=== PATIENT | male | born 1960 | race Caucasian/White ===

== ENCOUNTER 2018-05-05 16:00 | Outpatient (RCR) | payer BC, SELFPAY ==
--- NOTE | 2018-04-18 15:55 | HP.PTEVAL_ITS ---
Patient's Visit Information ARMOND HERBERT is a 57 year old M referred to Physical Therapy by Rosio Snowden with a diagnosis of R shoulder OA. Date of Evaluation: 04/18/18 Physical Therapist: Demetrius Franco, PT, - Visit Plan Frequency: 2-3x /Week Duration: 4 Weeks Plan: scap stability, RTC strengthening, AROM with pulleys, UBE, HEP - Subjective Subjective: Pt comes to PT with R shoulder pain from overuse which onset over a year ago. MRI shows R shoulder OA and labral tears. Pt has had four cortisone shots with slight improvement in pain. Pt is woken up from sleep due to pain. Sleeping position consists of laying on elevated arm. Pt has difficulty reaching overhead and keeping arms elevated for prolonged periods of time. Pt is R hand dominant. Pt denies N&T. Pt denies experiencing pain at rest. Pain is made better by predisone and rest. At the worst, R shoulder pain is intermittent and 7/10. Pt goals include sleeping without pain waking him up and return to work related activities consisting of overhead activities. - Pain R shoulder Pain Intensity (Out of 10): 0 Pain Intensity Range: 7 - Objective Neuro: all sensation to light touch is intact bilat. Biceps reflexes are 2+ bilat. Posture: rounded shoulders bilat, increased thoracic kyphosis, forward head posture. Palpation: TTP over supraspinatus. ROM: L shoulder flexion 159, abd 154, ER 40; R shoulder flexion 124, abd 105, ER 36. MMT: L shoulder flexion 3+, abd 4+, ER 4+, elbow flexion 4+; R shoulder flexion 3+*, abd 4-*, ER 4, elbow flexion 5. Special Tests: cardenas sabiha (+), empty can (+) - Goals Goal 1:: Improve sleep by decreasing pain by 50%. Goal Time Frame: 2-4 Weeks Goal 2:: Improve R shoulder strength by 2 MMT grades for return to workplace activities. Goal Time Frame: 2-4 Weeks Goal 3:: Gain 20 deg of R shoulder flexion and abd to return to performing work activities and IADLs. Goal Time Frame: 2-4 Weeks Goal 4:: I with HEP. Goal Time Frame: 2-4 Weeks - Rehabilitation Potential Physical Therapy Diagnosis: R shoulder pain, weakness, limited ROM secondary to rotator cuff syndrome. Rehabilitation Potential: Good - Anticipated Interventions Patient/Client Instruction: Educate patient on: Condition, Plan of Care For the Purpose of:: To improve self management Therapeutic Exercise to Include: Strength training, Endurance training, Postural training, Flexibilty training, Active ROM, Scapular Strength/ Stabilization For the Purpose of:: To decrease pain, To increase ROM, To improve muscle performance and motor function Cryotherapy (ice pack, ice massage): Yes For the Purpose of:: To decrease pain Thank you for the opportunity to evaluate your patient. For Medicare and Medicare HMO plans, please review the plan of care and approve it. It will need to be FAXED BACK to us at [phone] for Medicare purposes. Please let me know if there are questions or concerns regarding this plan of care. Physician Signature: Date:
--- NOTE | 2018-05-05 16:00 | DT_ITS ---
This patient was seen during an EMR downtime May 02, 2018 - May 09, 2018. This patient may have a combination of paper and electronic documentation or all paper documentation. All documentation is viewable within the e-chart portion of [employer] [facility] [employer] for each patient visit.
--- NOTE | 2018-06-30 17:14 | HP.PTDCNRP_ITS ---
HP - Discharge Summary (1) - Patient Information ARMOND HERBERT was seen in my office for initial evaluation on 04/18/18. The following Plan of Care was established for this patient: Initial Frequency: 2-3x /Week Initial Duration: 4 Weeks - Anticipated Interventions Patient/Client Instruction: Educate patient on: Condition, Plan of Care For the Purpose of:: To improve self management Therapeutic Exercise to Include: Strength training, Endurance training, Postural training, Flexibilty training, Active ROM, Scapular Strength/ Stabilization For the Purpose of:: To decrease pain, To increase ROM, To improve muscle performance and motor function Cryotherapy (ice pack, ice massage): Yes For the Purpose of:: To decrease pain This patient was last seen in our office . Pertinent comments regarding their Physical therapy will appear below: Pt was last scheduled for PT on the date of 05/12/18 but did not show for that appt. Pt has not returned through todays date, and is therefore discontinued at this time. At this point I will be discontinuing this patient from physical therapy. I would be happy to see this patient again in the future if found appropriate by the physician. Thank you! Demetrius Franco, PT,
== END 2018-05-05 19:00 | disposition home or self-care (01) ==
LOC: PT 16:00
PROVIDERS: Family Provider Internal Medicine; PCP Internal Medicine; Visit Provider Internal Medicine
DX: M19.011 Primary osteoarthritis, right shoulder (principal); M75.21 Bicipital tendinitis, right shoulder
CPT/HCPCS: 97110; 97161

== ENCOUNTER → 2019-09-15 11:28 | Outpatient (CLI) | payer BC, SELFPAY ==
[2014-06-29 09:29] VITALS: BMI 27.6
--- NOTE | 2019-09-15 11:33 | RAD_ITS ---
STUDY: X-RAY - ACUTE ABDOMINAL SERIES REASON FOR EXAM: Male, 58 years old. Abdominal pain. TECHNIQUE: Single view of the chest. Supine, and erect view(s) of the abdomen were obtained. COMPARISON: Comparison is made with prior chest radiograph dated August 01, 2015. FINDINGS: Stable calcified granulomas. Hyperinflation. The lungs are clear. Normal size heart. Calcified right hilar lymph nodes. Normal visualized pulmonary arteries. Normal visualized aortic arch and descending thoracic aorta. There is a moderate amount of colonic fecal material. The soft tissue structures of the abdomen and pelvis are unremarkable. Normal visualized osseous structures. RAD/Acute Abdomen Inc Chest IMPRESSION: Moderate amount of fecal material is seen in the colon. Electronically Signed: Arnadlo Phelps, at 12:44 EDT , Service support ,
[2019-09-15 12:37] LABS: Absolute Lymphocyte Count 1.56 X10^3/uL (0.83-4.51); Absolute Neutrophil Count 9.1 X10^3/uL (2.0-7.7); Basophil# 0.06 X10^3/uL; Basophil% 0.5 % (0-1); Eosinophil# 0.12 X10^3/uL; Lymphocyte # 1.56 X10^3/ul (4.0); Lymphocyte % 13.4 % (19-41); Mean Corp Hgb Conc 33.3 g/dL (32-36); Mean Corpuscular Hgb 29.9 pg (27.0-32.0); Mean Corpuscular Volume 89.7 fL (80-94); Mean Platelet Vol. 10.1 fl (6.2-12.0); Monocyte# 0.79 X10^3/uL; Monocyte% 6.8 % (0-10); NRBC Flagged by Analyzer 0 % (0-5); Neutrophil # 9.07 X10^3/uL (2.7-7.7); Platelet Count 293 K/mm3 (150-450); RBC Distribution Width CV 12.5 % (11.6-14.6); RBC Distribution Width SD 41.2 fl (35.1-43.9); Red Blood Count 5.35 M/mm3 (4.6-6.2); White Blood Count 11.6 K/mm3 (4.4-11.0)
[2019-09-15 12:39] LABS: Erythrocyte Sedimentation Rate 3 mm/hr (0-20)
[2019-09-15 13:15] LABS: ALB/GLOB Ratio 1.3 RATIO (0.9-2.4); AST(SGOT) 24 U/L (15-37); Alanine Aminotransfer ALT/SGPT 30 U/L (16-61); Albumin, Serum 3.9 g/dL (3.2-5.0); Alkaline Phosphatase 132 U/L (45-117); Anion Gap 5 (5-15); BUN 10 mg/dL (7-18); BUN/Creat Ratio 9.5 RATIO (10-20); Chloride 108 mmol/L (98-107); Creatinine, Serum 1.05 mg/dL (0.70-1.30); EST Glomerular Filtration Rate 76 mL/min (>60); Est Glom Filt Rate - Afr Amer 92 mL/min (>60); Globulin 2.9 g/dL (2.2-4.2); Glucose 84 mg/dL (74-106); Potassium 4.9 mmol/L (3.5-5.1); Protein, Total 6.8 g/dL (6.4-8.2); Sodium Level 142 mmol/L (136-145)
== END ==
LOC: HPRAD 11:29
PROVIDERS: Family Provider Internal Medicine; PCP Internal Medicine; Referring Provider Internal Medicine; Visit Provider Internal Medicine
DX: R10.31 Right lower quadrant pain (principal)
CPT/HCPCS: 74022; 80053; 85025; 85652; 86140

== ENCOUNTER 2019-09-30 08:40 | Emergency (ER) | payer BC, SELFPAY ==
[2019-09-30 08:43] VITALS: BP 132/3; PULSE 71; RESP 16; TEMP 36.4; O2SAT 99; BMI 28.7
--- NOTE | 2019-09-30 08:55 | RAD_ITS ---
STUDY: X-RAY - LUMBAR SPINE REASON FOR EXAM: Male, 58 years old. Low back pain. TECHNIQUE: 5 view(s) of the lumbar spine were obtained. COMPARISON: March 26, 2014 FINDINGS: No acute fracture, dislocation or osseous destruction. Minimal chronic T12 vertebral body height loss. No significant scoliosis. Lumbar straightening. Mild multilevel endplate spondylosis. Minimal facet joint arthrosis. No significant soft tissue swelling. Normal bowel gas pattern. RAD/L/S Spine Min 4 Views IMPRESSION: Lumbar spine intact Mild lumbar spine osteoarthritis Minimal chronic T12 vertebral body height loss Electronically Signed: Ronald Graham DO at 9:27 EDT Tel , Service support ,
--- NOTE | 2019-09-30 08:56 | ED.VIS.GEN ---
History of Present Illness Chief Complaint: Back Informant: Patient Onset: Days - 3 Context: Gradual Onset Timing: Continuous Current Severity: Severe Maximum Severity: Severe Worsened by: movement Relieved by: rest Narrative: Patient is a 58-year-old male with history of hypertension hyperlipidemia presented with atraumatic low back pain. Patient states it started 3 days ago has been progressively worsening. He states that in his lower back and describes it as sharp. The pain does not radiate. He states it is especially worse whenever he tries to bend or move. He has a hard time putting on his shoes or socks because of the pain. 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 In addition his recently had knee surgery and is been taking care of her. Patient denies any fecal or urine incontinence. He denies any paresthesias excluding saddle anesthesia. Denies any fever or chills. He denies any weakness of his lower extremities but states he is having hard time walking because of the pain. Patient denies any history of cancer or IV drug use. He has not taken anything for the pain at home. He has been using a cane to help with his ambulation. Patient states he does have a history of traumatic hip dislocation but states this feels different. He went and saw a chiropractor yesterday but was concerned because the chiropractor did not do any imaging. The chiropractor tried to adjust him but was unable to. Past Medical History - Allergies and Home Meds Allergies/Adverse Reactions: Allergies No Known Allergies Allergy (Verified 09/30/19 08:43) Primary Care Physician: Rosio Snowden DO [Primary Care Provider] - Past Medical History: - - Hypertension, hyperlipidemia Surgical History: noncontributory Lives: Spouse/ Significant Other Smoking Status: Former smoker Review of Systems All systems negative except as indicated Musculoskeletal: Reports: Back pain Physical Exam Vital Signs/Narrative: Vital Signs Temp Pulse Resp BP Pulse Ox 09/30/19 08:43 97.6 F L 71 16 132/3 H 99 Inital Vital Signs reviewed: Yes General: Well nourished, Well developed, No Acute Distress, - - Patient sitting straight up in chair Head: Normocephalic, Atraumatic Eyes: Perrl, EOMI ENT: Moist mucous membranes, No rhinorrhea Neck: Supple, Nontender, - - No meningeal signs Cardiovascular: Regular rate, Regular rhythm, No murmurs Respiratory: No distress, CTA bilaterally, Chest nontender Abdomen: Soft, Nontender, Nondistended, Normal bowel sounds Back: Normal Inspection, - - No midline tenderness, bilateral lower lumbar paraspinal tenderness to palpation. Negative for: CVA tenderness, Spinal tenderness Extremities: Nontender, No edema, - - Normal strength, no deformity Skin: Normal color, No rash Neurological: Alert, Oriented x3, Cranial nerves II-XII grossly intact, Normal Strength, Normal Sensation, - - Antalgic gait Psychological: Normal affect, Normal Mood Diagnostic/Tx/Re-eval Diagnostic Data Lumbar Spine X-Ray 09/30/19 08:55 IMPRESSION: Lumbar spine intact Mild lumbar spine osteoarthritis Minimal chronic T12 vertebral body height loss Electronically Signed: Ronald Graham DO at 9:27 EDT Tel , Service support , - Medical Decision Making Patient is evaluated for atraumatic low back pain. He has a normal neurologic exam. He does not have findings consistent with cauda equina syndrome. He is well-appearing. He is able to walk but with pain. Patient is given Motrin in the emergency room. X-ray does not show any acute fracture or lytic lesions. Patient is counseled on symptom medic treatment including heat, NSAIDs and Flexeril. He is counseled on signs and symptoms requiring return to emergency room. He verbalizes agreement understand this plan. Discharged home in stable condition. ED Disposition - Plan for ED Patient: Disposition: Home or Assisted Living Diagnosis: Acute lumbar back pain Instructions: BACK PAIN (Acute or Chronic) Prescriptions: cycloBENZAPRine HCl [Flexeril] 10 mg PO TID PRN #20 tab PRN Reason: Muscle Spasm Prescription Printed Ibuprofen [Motrin] 600 mg PO Q6H PRN PRN #20 tab PRN Reason: Pain Or Fever Prescription Printed Referrals: Rosio Snowden DO [Primary Care Provider] - Additional Instructions: Use heat on your lower back. Follow-up with your primary care doctor later in the week. Try to rest.
[2019-09-30] MEDS: Ibuprofen 600 MG Tablet PO (09:18)
--- NOTE | 2019-09-30 09:46 | ED.RN ---
DISCHARGE INSTRUCTIONS GIVEN TO AND REVIEWED WITH PATIENT, PATIENT DENIES QUESTIONS OR CONCERNS AND VOICES UNDERSTANDING OF DISCHARGE INSTRUCTIONS. PT AMBULATES OUT OF ROOM WITHOUT ISSUE.
== END 2019-09-30 09:47 | disposition home or self-care (01) ==
PROVIDERS: Emergency Provider Emergency Medicine; Family Provider Internal Medicine; PCP Internal Medicine
DX: M54.5 Low back pain (principal); I10 Essential (primary) hypertension; E78.5 Hyperlipidemia, unspecified; Z87.891 Personal history of nicotine dependence
CPT/HCPCS: 72110; 99283

== ENCOUNTER 2019-10-10 22:28 | Emergency (ER) | payer BC, SELFPAY ==
[2019-10-10 22:29] VITALS: BP 158/99; PULSE 88; RESP 16; TEMP 36.7; O2SAT 98; BMI 29.5
--- NOTE | 2019-10-10 22:48 | ED.DCSUM_ITS ---
History of Present Illness Chief Complaint: Abd Pain Narrative: Patient is a 58-year-old male who presents with back and abdominal pain. Symptoms initially began about 2 weeks ago with lower back pain. He was having some mild lower abdominal discomfort at that time. He initially saw his chiropractor who stated his hips were out of alignment and I did some therapy which did not seem to help. She was then seen here in the emergency department and had lumbar x-rays and was diagnosed with some arthritis in lower back. He was prescribed muscle relaxers. Since that time he has had constipation which she attributes to the muscle relaxers. He also developed worsening sharp lower abdominal pain. He does have a history of diverticulitis. He saw his primary care physician and had an x-ray. He was diagnosed with constipation and also clinically diagnosed with diverticulitis. He drank magnesium citrate and was also prescribed 2 different antibiotics which she believes were Cipro and Flagyl. However he states he did not feel right on the antibiotics and that they were making him shaky at work. He quit taking the antibiotics about 2 days ago. He continued to have sharp lower abdominal pain which is worse with bending over. His back pain is much better although he does still have lower back pain when he wakes up in the morning for about 30 minutes. This is worse with positional changes or palpation. No fevers nausea or vomiting. His only prior abdominal surgery is a hernia repair. Past Medical History - Allergies and Home Meds Allergies/Adverse Reactions: Allergies No Known Allergies Allergy (Verified 10/10/19 22:31) Primary Care Physician: Rosio Snowden DO [Primary Care Provider] - Past Medical History: - - Hypertension, hyperlipidemia, history of diverticulitis Surgical History: noncontributory Smoking Status: Former smoker Review of Systems All systems negative except as indicated General: Denies: Fever Cardiovascular: Denies: Chest pain Respiratory: Denies: Dyspnea Gastrointestinal: Reports: Abdominal pain, Constipation. Denies: Nausea, Vomiting, Diarrhea Skin: Denies: Rash Neurological: Denies: Headache Physical Exam Vital Signs/Narrative: Vital Signs Temp Pulse Resp BP Pulse Ox 10/10/19 22:29 98.1 F 88 16 158/99 H 98 Inital Vital Signs reviewed: Yes General: Well nourished, Well developed Head: Normocephalic, Atraumatic Eyes: EOMI ENT: Moist mucous membranes Neck: Supple Cardiovascular: Regular rate, Regular rhythm Respiratory: No distress, CTA bilaterally Abdomen: Soft, - - Lower abdominal tenderness without guarding or rebound Extremities: Nontender Skin: Normal color Neurological: Alert Psychological: Normal affect Diagnostic/Tx/Re-eval Impressions Abdomen/Pelvis CT 10/11/19 00:30 IMPRESSION: Colon diverticulosis. Electronically Signed: Ann Marie Savage, at 0:48 EST Tel , Service support , 10/11/19 00:30 Abdomen/Pelvis WITH Contrast [CT] Stat Laboratory Results 10/10/19 10/10/19 10/10/19 22:36 22:36 22:58 WBC 9.4 RBC 4.82 Hgb 14.3 Hct 42.6 MCV 88.4 MCH 29.7 MCHC 33.6 RDW Std Deviation 41.1 RDW Coeff of Jin 12.7 Plt Count 271 MPV 10.2 Immature Gran % (Auto) 0.200 Neut % (Auto) 74.2 H Lymph % (Auto) 16.8 L [place] % (Auto) 8.5 Eos % (Auto) 0.1 Baso % (Auto) 0.2 Absolute Neuts (auto) 7.0 Absolute Lymphs (auto) 1.58 Nucleated RBC % 0 Sodium 141 Potassium 3.8 Chloride 108 H Carbon Dioxide 26.0 Anion Gap 7 BUN 19 H Creatinine 1.31 H Estim Creat Clear Calc 61.92 Est GFR (MDRD) Af Amer 72 Est GFR (MDRD) Non-Af 59 L BUN/Creatinine Ratio 14.5 Glucose 133 H Calcium 8.8 Urine Color Yellow Urine Clarity Clear Urine pH 5.0 Ur Specific [place] 1.025 Urine Protein 15 H Urine Glucose (UA) Normal Urine Ketones 5 H Urine Occult Blood 10 H Urine Nitrite Negative Urine Bilirubin Negative Urine Urobilinogen Normal Ur Leukocyte Esterase 25 H Urine RBC 0-5 SEEN Urine WBC 0-5 SEEN Ur Squamous Epith Cells 0 SEEN Urine Bacteria 0 SEEN Hyaline Casts 0-5 SEEN Urine Mucus 3+ - Medical Decision Making Laboratory studies, urinalysis, CT of the abdomen unremarkable as above. He does not have evidence of acute diverticulitis. His back pain is likely musculoskeletal in nature. He was advised on supportive care and advised to follow-up with his primary care physician. In regards to his lower abdominal pain this is of uncertain etiology however he does not appear to have any acute medical or surgical emergency. He was advised to pursue further outpatient work-up but does understand return for new or worsening symptoms. He was discharged. ED Disposition - Plan for ED Patient: Disposition: Home or Assisted Living Diagnosis: Back pain, Abdominal pain Instructions: ABDOMINAL PAIN, Unkown Cause, (Male), BACK PAIN (Acute or Chronic) Referrals: Rosio Snowden DO [Primary Care Provider] -
[2019-10-10] MEDS: 0.9% Normal Saline 1,000 ML 1000 ML IV (22:59)
[2019-10-10] MEDS: Ketorolac 30 MG/ML Syringe IV (22:59)
[2019-10-10 23:06] LABS: Bacteria 0 SEEN /hpf (None Seen); Squamous Epithelial Cells - UA 0 SEEN /hpf (0-5)
[2019-10-10 23:07] LABS: Color, Urine Yellow (Yellow); Glucose, Dipstick Normal (Normal); Ketone-Dipstick 5 mg/dl (Negative); Leukocyte Esterase-Dipstick 25 /ul (Negative); Nitrite-Dipstick Negative (Negative); Occult Blood-Urine 10 /ul (Negative); Protein-Dipstick 15 mg/dl (Negative); Specific Gravity, Urine 1.025 (1.002-1.030); Urine Bilirubin Dipstick Negative (Negative); Urine Clarity Clear (Clear); Urine Urobilinogen Normal (Normal)
[2019-10-10 23:09] LABS: Absolute Lymphocyte Count 1.58 X10^3/uL (0.83-4.51); Basophil# 0.02 X10^3/uL; Basophil% 0.2 % (0-1); Eosinophil# 0.01 X10^3/uL; Eosinophils% 0.1 % (0-5); Hematocrit 42.6 % (40-54); Hemoglobin 14.3 g/dL (13.0-16.5); Lymphocyte # 1.58 X10^3/ul (4.0); Lymphocyte % 16.8 % (19-41); Mean Corp Hgb Conc 33.6 g/dL (32-36); Mean Corpuscular Hgb 29.7 pg (27.0-32.0); Mean Corpuscular Volume 88.4 fL (80-94); Mean Platelet Vol. 10.2 fl (6.2-12.0); Monocyte% 8.5 % (0-10); NRBC Flagged by Analyzer 0 % (0-5); Neutrophil # 6.98 X10^3/uL (2.7-7.7); Neutrophil % 74.2 % (47-70); Platelet Count 271 K/mm3 (150-450); RBC Distribution Width CV 12.7 % (11.6-14.6); RBC Distribution Width SD 41.1 fl (35.1-43.9); Red Blood Count 4.82 M/mm3 (4.6-6.2); White Blood Count 9.4 K/mm3 (4.4-11.0)
[2019-10-10 23:13] LABS: Mucous, Urine 3+ /hpf (<or=2+)
[2019-10-10 23:14] LABS: Hyaline Cast 0-5 SEEN /lpf (0-5)
[2019-10-10 23:15] LABS: White Blood Cells 0-5 SEEN /hpf (0-5)
[2019-10-10 23:16] LABS: Red Blood Cells-Urine 0-5 SEEN /hpf (0-5)
[2019-10-10 23:17] LABS: Anion Gap 7 (5-15); BUN 19 mg/dL (7-18); BUN/Creat Ratio 14.5 RATIO (10-20); Calcium,Total 8.8 mg/dL (8.5-10.1); Chloride 108 mmol/L (98-107); Creatinine, Serum 1.31 mg/dL (0.70-1.30); EST Glomerular Filtration Rate 59 mL/min (>60); Est Glom Filt Rate - Afr Amer 72 mL/min (>60); Estimated Creatinine Clearance 61.92 ml/min; Glucose 133 mg/dL (74-106); Potassium 3.8 mmol/L (3.5-5.1); Sodium Level 141 mmol/L (136-145)
--- NOTE | 2019-10-11 00:30 | CT_ITS ---
STUDY: CT ABDOMEN AND PELVIS WITH CONTRAST REASON FOR EXAM: Male, 58 years old. Lower abdominal pain. RADIATION DOSAGE (If Supplied By Facility): CTDIvol = ( 18.28 ) mGy, DLP = ( 1119.22 ) mGycm TECHNIQUE: Transaxial images were obtained from the dome of the diaphragm to the symphysis pubis without oral contrast. IV/Oral Isovue 300 100ml was administered. Sagittal and coronal images were reconstructed. Individualized dose optimization techniques were used for this CT. COMPARISON: None. FINDINGS: The visualized lung bases demonstrate dependent atelectasis. The visualized portions of the heart are within normal limits. Normal liver. Normal gallbladder and extrahepatic biliary system. Normal spleen. Normal pancreas. Normal bilateral adrenal glands. Normal right kidney. There is left renal cyst measures 4.2 cm. Normal visualized stomach. Normal small intestine. There are multiple colonic diverticula consistent with diverticulosis. The appendix is visualized and appears normal. Normal abdominal aorta. Normal inferior vena cava. Normal retroperitoneum. Normal urinary bladder. Normal abdominal wall. Normal osseous structures. CT/Abdomen/Pelvis WITH Contrast IMPRESSION: Colon diverticulosis. Electronically Signed: Ann Marie Savage, at 0:48 EST Tel , Service support ,
[2019-10-11 01:24] VITALS: BP 154/105; PULSE 72; RESP 16; O2SAT 96
== END 2019-10-11 01:25 | disposition home or self-care (01) ==
PROVIDERS: Emergency Provider Emergency Medicine; Family Provider Internal Medicine; PCP Internal Medicine
DX: R10.30 Lower abdominal pain, unspecified (principal); M54.5 Low back pain; M19.90 Unspecified osteoarthritis, unspecified site; K59.00 Constipation, unspecified; K57.30 Diverticulosis of large intestine without perforation or abscess without bleeding; I10 Essential (primary) hypertension; E78.5 Hyperlipidemia, unspecified; Z87.19 Personal history of other diseases of the digestive system; Z79.82 Long term (current) use of aspirin; Z79.899 Other long term (current) drug therapy; Z87.891 Personal history of nicotine dependence
CPT/HCPCS: 74177; 80048; 81001; 85025; 96361; 96374; 99282; J7030; Q9967; A4216

== ENCOUNTER 2019-10-20 08:00 | Outpatient (RCR) | payer BC, SELFPAY ==
--- NOTE | 2019-10-12 12:51 | HP.PTEVAL_ITS ---
Patient's Visit Information ARMOND HERBERT is a 58 year old M referred to Physical Therapy by TUCKER Cuellar with a diagnosis of LOW BACK PAIN. Date of Evaluation: 10/12/19 Physical Therapist: Alyssa Clark PT, Cert MDT - Visit Plan Frequency: 2-3x /Week Duration: 4-6 Weeks Plan: US, ESTIM, MH, POSTURE CORRECTION/STRENGTHENING, INSTRUCTION IN APPROPRIATE BODY MECHANICS AND ACTIVITY MODIFICATIONS. DLS STARTING WITH A NEUTRAL SPINE PROGRESSING ROM TOLERATED. BRISSA LE ROM, STRETCHING AND STRENGTHENING. HEP INSTRUCTION. 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 HAS NOT MISSED WORK. Disability: NO. Present symptoms: BRISSA LOW BACK PAIN. INTERMITTENT BRISSA LEG WEAKNESS THAT CAN HIT SUDDENLY. LEGS BUCKLE. NO NUMBNESS OR TINGLING. Present since: ABOUT 3 WEEKS AGO. Pain Scale: WORST 10/10, LEAST 3/10. Currently: 10. Commenced as a result of: NO APPARENT REASON. COULDN'T GET OUT OF BED. Symptoms at onset: LOW BACK PAIN. Worse: WORK, SITTING, RISING FROM SITTING, TWISITNG,BENDING OVER TO PUT SOCKS ON, DRIVING, FLEXING NECK OR TURNING HEAD THE WRONG WAY, ICE, ROLLING OVER IN BED. Better: MOVE SLOW, USING ARMS TO RISE FROM SITTING WITH CANE, TENS UNIT, HEAT, HOT SHOWER. Disturbed sleep: YES. Previous history/Previous treatment: ABOUT 20 YEARS AGO LIFTING SOMETHING HEAVY AND STATES HE POPPED BOTH HIPS OUT OF SOCKET AND CHIROPRACTOR PUT THEM BACK IN. CHIROPRACTIC OFF AND ON SINCE THEN NEEDED. NO BACK SURGERY. NO HIP SX. NO BACK OR HIP INJECTIONS. Coughing/sneezing/straining: POSITIVE. Gait: PATIENT REPORTS THAT RIGHT NOW HE WALKS FINE BUT 3 DAYS AGO IT WAS A STRUGGLE. Difficulty initiating urinatin: NO. Accidents: NO. Unexplained weight loss: NO. Imaging: Lumbar spine intact. Mild lumbar spine osteoarthritis. Minimal chronic T12 vertebral body height loss. PMH: Colon diverticulosis. HERNIA REPAIR ABOUT 2 YEARS AGO, H/O KIDNEY STONES. OTHER: PATIENT REPORTS IT WAS GETTING BETTER AND NOW IT IS GETTING WORSE AGAIN. LAST VISIT WITH CHIROPRACTOR WAS AT ONSET BUT IT DIDN'T HELP. WENT BACK TO CHIROPRACOTR ONE OTHER TIME. NORMALLY GOES TO CHIROPRACTOR FOR NECK. JUST HAD A TKR AND NOW HAS TO HAVE THE OTHER ONE DONE. ALSO JUST MOVED BROTHER IN WITH HIM AND HE IS ILL. - Objective Sitting/Standing Posture: POOR. Lordosis: NORMAL. Lateral shift: NO. Relevant shift: N/A. Active Correction of posture: BETTER. Other Observations: DIFFICULTY RISING FROM SITTING. INDEP GAIT WITH NO GROSS DEVIATIONS NOTED TODAY. Motor deficit: BRISSA LE'S 5/5 WITH MMT'ING EXCEPT BRISSA HIPS: LEFT 4/5, RIGHT 4-/5. Sensory deficit: BRISSA LE LIGHT TOUCH SENSATION APPEARS INTACT AND SYMMETRICAL. ROM deficit: TIGHT BRISSA HS' S AND GASTROC SOLEUS COMPLEX'S. Reflexes: 2/3. Dural Signs: POSITIVE BRISSA LE'S RIGHT > LEFT. Lumbar mvmt loss: flex - MIN. ext - MOD. R SG - MIN. L SG - MIN. PATIENT REPORTS PULLING IN LOW BACK WITH LUMBAR ROM TESTING ALL PLANES. Core strength: POOR. Palpation: TENDERNESS WITH DEEP PALPATION OF THE L45S1 REGIONS AND BRISSA SI JT REGIONS. OTHER: REP EIL - NE ON ROM OR SYMPTOMS. - Goals Goal 1:: DECREASE C/O LOW BACK PAIN AND LE SX'S. Goal Time Frame: 4-6 Weeks Goal 2:: IMPROVE BENDING, LIFTING, WITTING, SLEEP, CARETAKING, HOMEMAKING AND WORK FUNCTION Goal Time Frame: 4-6 Weeks Goal 3:: INSTRUCT IN PROPHYLAXIS Goal Time Frame: 4-6 Weeks - Rehabilitation Potential Rehabilitation Potential: Fair - Anticipated Interventions Patient/Client Instruction: Educate patient on: Condition, Plan of Care, Risk Factors, Benefits of Fitness Program For the Purpose of:: To improve self management Therapeutic Exercise to Include: Strength training, Body mechanics, Postural training, Flexibilty training, Dynamic Lumbar Stabilization For the Purpose of:: To decrease pain, To increase ROM, To improve muscle performance and motor function, To increase tolerance to activity/condition/position, To improve ability of physical actions for ho me/community/work/leisure TENS: Yes IF ES: Yes Cryotherapy (ice pack, ice massage): Yes Thermo therapy (hot pack): Yes Ultrasound (thermal/non thermal): Yes For the Purpose of:: To decrease pain, To increase ROM, To improve muscle performance and motor function, To increase tolerance to activity/condition/position, To improve ability of physical actions for home/community/work/leisure Thank you for the opportunity to evaluate your patient. For Medicare and Medicare HMO plans, please review the plan of care and approve it. It will need to be FAXED BACK to us at [phone] for Medicare purposes. For Medicare only, by signing this I certify the plan of care. Please let me know if there are questions or concerns regarding this plan of care. Physician Signature: Date:
--- NOTE | 2019-10-20 08:39 | HP.PTDCSUM ---
HP - PT D/C Summary It has been my pleasure to treat ARMOND HERBERT under orders from Mikala Snyder, [facility], for the diagnosis of LOW BACK PAIN for a total of 3 visit(s). Discharge Date: 10/20/19 Please see the following information for a summary of their discharge status. - Subjective Subjective: MY SCHEDULE IS SO CRAZY. I HAVE WORKED THE LAST 12 DAYS IN A ROW 12 HOUR DAYS AND I AM EXHAUSTED. NO PAIN. MRI ORDERED. STATES HE HAS A PRESCRIPTION FOR PREDNISONE THAT HE CAN FILL IF NEEDED IF HE GETS A FLARE UP. STATES HE HASN'T HAD TIME TO DO HIS HEP. STATES HE DOESN'T FEEL HE NEEDS PT RIGHT NOW AND HE REALLY DOESN'T HAVE TIME. - Overall Improvement % Improvement: 90 - Objective Objective/Function: PATIENT CONTINUES TO HAVE MILD RIGHT LE POSITIVE DURAL SIGN. HE IS A GOOD CANDIDATE TO CONTINUE PT BUT WISHES TO BE DISCHARGED. PATIENT HAS A HEP. UPONE EXAM TODAY: NO DIFFICULTY RISING FROM SITTING. INDEP GAIT WITH NO GROSS DEVIATIONS NOTED TODAY. Motor deficit: BRISSA LE'S 5/5. Sensory deficit: BRISSA LE LIGHT TOUCH SENSATION APPEARS INTACT AND SYMMETRICAL. ROM deficit: TIGHT BRISSA HS' S AND GASTROC SOLEUS COMPLEX'S. Dural Signs: MILDLY POSITIVE RIGHT LE. NEGATIVE LLE. Lumbar mvmt loss: flex - NIL. ext - MOD. R SG - MIN. L SG - MIN. Core strength: POOR - Goals Goal 1:: DECREASE C/O LOW BACK PAIN AND LE SX'S. Goal Progress: Goal Met Goal 2:: IMPROVE BENDING, LIFTING, WITTING, SLEEP, CARETAKING, HOMEMAKING AND WORK FUNCTION Goal Progress: Goal Met Goal 3:: INSTRUCT IN PROPHYLAXIS Goal Progress: Progressing - Plan Plan: D/C AT PATIENTS REQUEST. - D/C Information If there are questions or concerns regarding this patient's physical therapy, please feel free to call me at [phone]. Thank you for the referral of this patient. Sincerely, Alyssa Clark, PT, Cert MDT
== END 2019-10-20 19:00 | disposition home or self-care (01) ==
LOC: PT 08:00
PROVIDERS: Family Provider Internal Medicine; PCP Internal Medicine; Referring Provider Nurse Practitioner; Visit Provider Nurse Practitioner
DX: M54.5 Low back pain (principal)
CPT/HCPCS: 97110; 97162; 97530

== ENCOUNTER → 2019-11-11 08:38 | Outpatient (CLI) | payer BC, SELFPAY ==
--- NOTE | 2019-11-11 08:47 | MRI_ITS ---
STUDY: MRI LUMBAR SPINE WITHOUT CONTRAST REASON FOR EXAM: Male, 59 years old. Low back pain TECHNIQUE: Standardized fat and water weighted pulse sequences were obtained in the sagittal and axial planes. COMPARISON: None FINDINGS: lumbar spine is intact and aligned. Marrow, paraspinous soft tissues and SI joints are unremarkable. Conus medullaris terminates at the appropriate level with unremarkable cauda equina. Spinal canal is patent. Foramina and lateral recesses are patent. There is minor degenerative marrow change along the anterior superior L3. There is subligamentous left central L3-L4 disc herniation without neural compression or proximity to neural structures.. There is a presumed left renal cyst. MRI/Spine Lumbar (Routine) IMPRESSION: 1. Patent canal, no neural compression. 2. Degenerative change. Electronically Signed: Rabia Feldman, at 17:41 EST Tel , Service support ,
== END ==
LOC: MRI 08:39
PROVIDERS: Family Provider Internal Medicine; PCP Internal Medicine; Referring Provider Internal Medicine; Visit Provider Internal Medicine
DX: M54.5 Low back pain (principal)
CPT/HCPCS: 72148

== ENCOUNTER 2020-07-18 09:30 | Outpatient (RCR) | payer BC, SELFPAY ==
--- NOTE | 2020-06-20 09:09 | HP.PTEVAL_ITS ---
Patient's Visit Information ARMOND HERBERT is a 59 year old M referred to Physical Therapy by Dr. Rosio Snowden DO with a diagnosis of Achilles Tendonitis Right. Date of Evaluation: 06/20/20 Physical Therapist: Elda Ward DPT - Visit Plan Frequency: 2x /Week Duration: 4 Weeks Plan: Ultrasound, manual therapy and eccentric with gastroc stretching. - Subjective Patient reports slightly torn Right achilles tendon that gets inflammed and then it hurts. 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 He has been on a pred pack but it only felt better for a few days. Has been wearing a walking boot when not at work- which he is unsure about whether its helping. Also has bone spurs in the heel. Insidious onset and has been bothering him for 8 months to a year. When it gets bad he goes on the dose pack and it clears up- this time its not clearing up. Pain is only in the achilles no radiating pain. Describes the pain as sharp pains but most of the time its achy. Worst: 4/10 with steroid 10/10 without the steroid. Agg: walking, standing Eases: prednisone, sitting sometimes helps but getting back up really hurts. Best: 0/10. N/T only when he wears the boot but takes it off and it goes away. No o rthotics or inserts in your shoes. Has seen Dr. Merlos for this and she recommended stretching- within the last year- it didn't really help. X-ray- bone spurs on his toes- no MRI of the ankle- only of the lumbar spine. Sleep: not disturbed- does not wear a night splint. Possibly having bone spur surgery on his toes- possibly take care of this as well. PMHx: HTN Meds: lisiopril, robustin, zyrtec - Objective Posture: FH, RS can correct but does not maintain. Gait: antalgic- decreased stance on the right LE with poor heel/toe pattern. HR/TR: able but reports pain with TR. SLS: 30 sec increased muscle activation. observation: worn shoes with poor arch support. Palpation: tender along achilles tendon. ROM: DF: 10 degrees, PF: 60 degrees, inver: 40 degrees Ever: 20 degrees. Strength: Ankle: 5/5 throughout, Knee: 5/5, Ankle: 4+/5. Flex: Gastroc: moderate Soleus: minimal - Goals Goal 1:: Patient will be I with HEP and progression Goal Time Frame: 4-6 Weeks Goal 2:: Patient will ambulate >300 feet with a normalized gait pattern Goal Time Frame: 4-6 Weeks Goal 3:: Patient will report no pain for 1 week Goal Time Frame: 4-6 Weeks - Rehabilitation Potential Physical Therapy Diagnosis: Patient presents with hypomobility- he has decreased ROM, strength, flex and muscular endurance leading to abnormal gait and increased pain with ADL's. Rehabilitation Potential: Fair - Anticipated Interventions Patient/Client Instruction: Educate patient on: Benefits of Fitness Program Therapeutic Exercise to Include: Strength training, Endurance training, Balance training, Agility training, Body mechanics, Postural training, Flexibilty training, Gait and locomotor training, Neuromotor development, Passive ROM, Active ROM, Dynamic Lumbar Stabilization, Scapular Strength/Stabilization For the Purpose of:: To improve muscle performance and motor function TENS: Yes Cryotherapy (ice pack, ice massage): Yes Thermo therapy (hot pack): Yes Ultrasound (thermal/non thermal): Yes For the Purpose of:: To decrease pain, To decrease swelling/inflammation Thank you for the opportunity to evaluate your patient. For Medicare and Medicare HMO plans, please review the plan of care and approve it. It will need to be FAXED BACK to us at [phone] for Medicare purposes. For Medicare only, by signing this I certify the plan of care. Please let me know if there are questions or concerns regarding this plan of care. Physician Signature: Date:
--- NOTE | 2020-07-18 09:56 | HP.PTDCSUM_ITS ---
It has been my pleasure to treat ARMOND HERBERT referred by Dr. Rosio Snowden DO, with the diagnosis of Achilles Tendonitis Right for a total of 8 visit(s). Discharge Date: Please see the following information for a summary of their discharge status. Subjective: Patient reports that she saw Dr. Merlos yesterday and he plans to have surgery in [facility] to remove the heel spur. He has had little relief from PT R ankle Pain Intensity (Out of 10): 1 % Improvement: 0 Objective/Function: Posture: FH, RS can correct but does not maintain. Gait: antalgic- decreased stance on the right LE with poor heel/toe pattern. HR/TR: able but reports pain with TR. SLS: 30 sec increased muscle activation. observation: worn shoes with poor arch support. Palpation: tender along achilles tendon. ROM: DF: 10 degrees, PF: 60 degrees, inver: 40 degrees Ever: 20 degrees. Strength: Ankle: 5/5 throughout, Knee: 5/5, Ankle: 4+/5. Flex: Gastroc: moderate Soleus: minimal. No change since IE Goal 1:: Patient will be I with HEP and progression Goal Progress: Goal Met Goal 2:: Patient will ambulate >300 feet with a normalized gait pattern Goal Progress: Not Progressing Goal 3:: Patient will report no pain for 1 week Goal Progress: Not Progressing Plan: Discharge to I stretching and surgery If there are questions or concerns regarding this patient's physical therapy, please feel free to call me at [phone]. Thank you for the referral of this patient. Sincerely, Elda Ward DPT
== END 2020-07-18 10:02 | disposition home or self-care (01) ==
LOC: PT 09:30
PROVIDERS: PCP Internal Medicine; Referring Provider Internal Medicine; Visit Provider Internal Medicine
DX: M76.61 Achilles tendinitis, right leg (principal)
CPT/HCPCS: 97035; 97140; 97161; 97164

== ENCOUNTER → 2020-08-19 06:33 | Outpatient (CLI) | payer BC, SELFPAY ==
--- NOTE | 2020-08-19 06:42 | MRI_ITS ---
STUDY: MRI RIGHT ANKLE WITHOUT CONTRAST REASON FOR EXAM: Posterior heel pain for 5 years, no specific injury, evaluate Achilles tendinitis. TECHNIQUE: Standardized fat and water weighted pulse sequences were obtained in all 3 orthogonal planes. COMPARISON: Radiographs . FINDINGS: Normal subcutis adipose space. There is a very small volume of fluid in the posterior tibialis tendon sheath, mostly distal to the medial malleolus (inversion recovery sagittal image 17). The posterior tibialis tendon is morphologically normal. Normal flexor digitorum longus tendon. Normal flexor hallucis longus tendon. Normal peroneus longus and brevis tendons. Normal tibialis anterior tendon. Normal extensor hallucis longus tendon. Normal extensor digitorum longus tendons. There is mild increased intrasubstance signal in the distal 6 cm of the Achilles tendon (inversion recovery sagittal images 11-13) without discrete tendon tear. There is slight bone edema in the posterior tuberosity of the calcaneus at the Achilles tendon insertion (inversion recovery sagittal image 11). There is a small posterior calcaneal enthesophyte. There is no retrocalcaneal bursitis. Normal plantar fascia. Normal plantar calcaneal tubercles. Normal intrinsic muscles of the rearfoot. Normal distal tibiofibular syndesmotic ligamentous complex. Normal lateral ligamentous complex. There is a lobulated ganglion cyst at the lateral aspect of the sinus tarsi extending superficial to the sinus tarsi (T2 coronal images 14-17) measuring 1.4 cm in transverse and length dimensions. There is a ganglion cyst dorsal to the distal talus and extending into the sinus tarsi (inversion recovery sagittal images 7-12) measuring 1.9 cm in AP dimension. Normal deltoid ligamentous complexes. Normal plantar calcaneonavicular (spring) ligament. Normal tibiotalar articulation. Normal talar dome. Normal subtalar articulations. There is an os trigonum. Normal talonavicular articulation. Normal calcaneocuboid articulation. Normal navicular-cuneiform articulations. MRI/Lower Ext Joint Only (Routine) IMPRESSION: Mild distal Achilles tendinosis with slight bone edema in the posterior tuberosity of the calcaneus and small posterior calcaneal enthesophyte. Very mild posterior tibialis tenosynovitis. Ganglion cysts at the lateral aspect of the sinus tarsi and dorsal to the distal talus extending into the sinus tarsi. Electronically Signed: Edinson Gomez MD at 8:33 EDT Tel , Service support ,
== END ==
PROVIDERS: PCP Internal Medicine; Referring Provider Podiatrist; Visit Provider Podiatrist
DX: M76.61 Achilles tendinitis, right leg (principal)
CPT/HCPCS: 73721

== ENCOUNTER 2021-05-01 10:00 | Outpatient (RCR) | payer BC, SELFPAY ==
--- NOTE | 2020-12-16 12:54 | HP.PTEVAL ---
Patient's Visit Information ARMOND HERBERT is a 60 year old M referred to Physical Therapy by Dr. Barby Merlos DPM with a diagnosis of ACHILLES TENDONOPATHY AND HEEL SPUR. Date of Evaluation: 12/16/20 Physical Therapist: Enrique Nielson, PT, Cert MDT, OCS - Visit Plan Frequency: 2x /Week Duration: 4 Weeks Plan: 2xs/week for 4 weeks. PT interventions: Ankle AROM, LE/ ankle strengthening, gait mechanics, WB tolerance, balance/proprioception, mobilization, and flexibility. - Subjective PATIENT STATES HE WEARS BOOT DURING THE DAY IF ACTIVE. CURRENTLY WEANING OFF BOOT. R ACHILLES RESSECTION AND R GREAT TOE RESECTION AND REMOVAL OF SPUR ON 10/03/2020 R FOOT SURGERY. NWB FOR 4 WEEKS, CRUTCHES FOR 2 WEEKS AFTER. REPORTS NO SWELLING AFTER SURGERY AND SOME SORENESS. RESTING AND GETTING OFF OF HIS FEET HELPS. 5/10 PAIN COMING INTO CLINIC. 7-8/10 WORST PAIN. DENIES PARATHESIA/TINGILING.SEES DOCTOR ON 12/26/2020 AND PLANNING ON RERTURNING TO WORK. PAIN IS BIGGEST LIMITING FACTOR.PATIENT HAS BEEN OFF WORK SINCE 10/03/20,GOAL POSSIBLE; TO RTW END MONTH . TRIED PT PRIOR TO SURGERY. 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 SURGERY: HALLICIS VALGUS, ACILLES RESECTION AND REMOVAL OF BONE SPUR, BONE REMOVED FROM BIG TOE - Pain Right Ankle Pain Intensity (Out of 10): 5 Pain Intensity Range: 10 Comment: Anterior/posterior foot - Objective Skin inspection: WNL. Observation Frontal plane mechanics: Pes Cavus. ROM: dotsiflexion 6 degrees from neutral,plantarflexion 50 degrees,inversion 35 degree , limited AROM of big toe. PROPRIOCEPTION: not tested. EDEMA TRIMALLEOR JOINT LINE : 58.5CM. MMT: DF 5/5, PF 5/5. DL HEEL RAISE: FAIR. SUBTALAR JOINT MOBS: WNL. TALOCRUAL JOINT: MILD TO MOD LIMITATION. GAIT: DECREASED KAREN, MILD R LIMP, DECREASED WB ON R LE. - Goals Goal 1:: Patient will demonstrate improve R ankle DF to improve functional mobility and gait. Goal Time Frame: 2-4 Weeks Goal 2:: Patient will demonstrate independence with HEP. Goal Time Frame: 2-4 Weeks Goal 3:: Patient will demonstrate improved gait mechanics and decrease R limp for improved WB tolerance and ambulation. Goal Time Frame: 2-4 Weeks Goal 4:: Patient will improve LEFS by 5 or > points for improved quality of life. Goal Time Frame: 2-4 Weeks Goal 5:: Patient to improve prioception symmtrical right compared to left. Goal Time Frame: 2-4 Weeks - Rehabilitation Potential Physical Therapy Diagnosis: PATIENT IS A 60 YEAR OLD MALE PRESENTING TO THE CLINIC S/P R ACHILLES TENDON RESECTION AND RESECTION OF SPUR FROM GREAT TOE. PRESENTS WITH LIMITED R ANKLE AROM, INCREASED L ANTERIOR/POSTERIOR FOOT PAIN, DECREASED R STANCE TIME DURING GAIT. Rehabilitation Potential: Good - Anticipated Interventions Patient/Client Instruction: Educate patient on: Condition, Plan of Care For the Purpose of:: To decrease pain, To increase ROM, To improve muscle performance and motor function, To improve ability to perform ADL's, To increase tolerance to activity/condition/position, To improve performance and independence with ADL's, To improve ability of physical actions for home/community/work/leisure, To improve gait and locomotor functions, To increase flexibility/ROM, To improve balance, To improve safety with gait, To improve health and function, To improve tolerance to ADL's Therapeutic Exercise to Include: Strength training, Balance training, Coordination, Body mechanics, Flexibilty training, Gait and locomotor training, Neuromotor development, Active ROM For the Purpose of:: To decrease pain, To increase ROM, To improve muscle performance and motor function, To improve ability to perform ADL's, To increase tolerance to activity/condition/position, To improve performance and independence with ADL's, To improve ability of physical actions for home/community/work/leisure, To improve gait and locomotor functions, To increase flexibility/ROM, To improve balance, To improve safety with gait, To improve health and function, To improve tolerance to ADL's Manual Therapy Techniques to Include: Mobilization, Soft tissue mobilization Comment: Roller stick to R calf and R ankle talocrual mobilization For the Purpose of:: To decrease pain, To increase ROM, To improve muscle performance and motor function, To improve ability to perform ADL's, To improve ability of physical actions for home/community/work/leisure, To increase flexibility/ROM, To improve tolerance to ADL's Thank you for the opportunity to evaluate your patient. For Medicare and Medicare HMO plans, please review the plan of care and approve it. It will need to be FAXED BACK to us at [phone] for Medicare purposes. For Medicare only, by signing this I certify the plan of care. Please let me know if there are questions or concerns regarding this plan of care. Physician Signature: Date:
--- NOTE | 2020-12-16 12:57 | HP.PTEVAL ---
Patient's Visit Information ARMOND HERBERT is a 60 year old M referred to Physical Therapy by Dr. Barby Merlos DPM with a diagnosis of ACHILLES TENDONOPATHY AND HEEL SPUR. Date of Evaluation: 12/16/20 Physical Therapist: Enrique Nielson, PT, Cert MDT, OCS - Visit Plan Frequency: 2x /Week Duration: 4 Weeks Plan: 2xs/week for 4 weeks. PT interventions: Ankle AROM, LE/ ankle strengthening, gait mechanics, WB tolerance, balance/proprioception, mobilization, and flexibility. - Subjective PATIENT STATES HE WEARS BOOT DURING THE DAY IF ACTIVE. CURRENTLY WEANING OFF BOOT. R ACHILLES RESSECTION AND R GREAT TOE RESECTION AND REMOVAL OF SPUR ON 10/03/2020 R FOOT SURGERY. NWB FOR 4 WEEKS, CRUTCHES FOR 2 WEEKS AFTER. REPORTS NO SWELLING AFTER SURGERY AND SOME SORENESS. RESTING AND GETTING OFF OF HIS FEET HELPS. 5/10 PAIN COMING INTO CLINIC. 7-8/10 WORST PAIN. DENIES PARATHESIA/TINGILING.SEES DOCTOR ON 12/26/2020 AND PLANNING ON RERTURNING TO WORK. PAIN IS BIGGEST LIMITING FACTOR.PATIENT HAS BEEN OFF WORK SINCE 10/03/20,GOAL POSSIBLE; TO RTW END MONTH . TRIED PT PRIOR TO SURGERY. 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 SURGERY: HALLICIS VALGUS, ACILLES RESECTION AND REMOVAL OF BONE SPUR, BONE REMOVED FROM BIG TOE - Pain Right Ankle Pain Intensity (Out of 10): 5 Pain Intensity Range: 10 Comment: Anterior/posterior foot - Objective Skin inspection: WNL. Observation Frontal plane mechanics: Pes Cavus. ROM: dotsiflexion 6 degrees from neutral,plantarflexion 50 degrees,inversion 35 degree , limited AROM of big toe. PROPRIOCEPTION: not tested. EDEMA TRIMALLEOR JOINT LINE : 58.5CM. MMT: DF 5/5, PF 5/5. DL HEEL RAISE: FAIR. SUBTALAR JOINT MOBS: WNL. TALOCRUAL JOINT: MILD TO MOD LIMITATION. GAIT: DECREASED KAREN, MILD R LIMP, DECREASED WB ON R LE. - Goals Goal 1:: Patient will demonstrate improve R ankle DF to improve functional mobility and gait. Goal Time Frame: 2-4 Weeks Goal 2:: Patient will demonstrate independence with HEP. Goal Time Frame: 2-4 Weeks Goal 3:: Patient will demonstrate improved gait mechanics and decrease R limp for improved WB tolerance and ambulation. Goal Time Frame: 2-4 Weeks Goal 4:: Patient will improve LEFS by 5 or > points for improved quality of life. Goal Time Frame: 2-4 Weeks Goal 5:: Patient to improve prioception symmtrical right compared to left. Goal Time Frame: 2-4 Weeks - Rehabilitation Potential Physical Therapy Diagnosis: PATIENT IS A 60 YEAR OLD MALE PRESENTING TO THE CLINIC S/P R ACHILLES TENDON RESECTION AND RESECTION OF SPUR FROM GREAT TOE. PRESENTS WITH LIMITED R ANKLE AROM, INCREASED R ANTERIOR/POSTERIOR FOOT PAIN, DECREASED R STANCE TIME DURING GAIT. Rehabilitation Potential: Good - Anticipated Interventions Patient/Client Instruction: Educate patient on: Condition, Plan of Care For the Purpose of:: To decrease pain, To increase ROM, To improve muscle performance and motor function, To improve ability to perform ADL's, To increase tolerance to activity/condition/position, To improve performance and independence with ADL's, To improve ability of physical actions for home/community/work/leisure, To improve gait and locomotor functions, To increase flexibility/ROM, To improve balance, To improve safety with gait, To improve health and function, To improve tolerance to ADL's Therapeutic Exercise to Include: Strength training, Balance training, Coordination, Body mechanics, Flexibilty training, Gait and locomotor training, Neuromotor development, Active ROM For the Purpose of:: To decrease pain, To increase ROM, To improve muscle performance and motor function, To improve ability to perform ADL's, To increase tolerance to activity/condition/position, To improve performance and independence with ADL's, To improve ability of physical actions for home/community/work/leisure, To improve gait and locomotor functions, To increase flexibility/ROM, To improve balance, To improve safety with gait, To improve health and function, To improve tolerance to ADL's Manual Therapy Techniques to Include: Mobilization, Soft tissue mobilization Comment: Roller stick to R calf and R ankle talocrual mobilization For the Purpose of:: To decrease pain, To increase ROM, To improve muscle performance and motor function, To improve ability to perform ADL's, To improve ability of physical actions for home/community/work/leisure, To increase flexibility/ROM, To improve tolerance to ADL's Thank you for the opportunity to evaluate your patient. For Medicare and Medicare HMO plans, please review the plan of care and approve it. It will need to be FAXED BACK to us at [phone] for Medicare purposes. For Medicare only, by signing this I certify the plan of care. Please let me know if there are questions or concerns regarding this plan of care. Physician Signature: Date:
--- NOTE | 2021-03-14 14:29 | HP.PTREVAL_ITS ---
Dr. Barby Merlos, DPM, It has been my pleasure to treat ARMOND HERBERT over the last 9 visits for ACHILLES TENDONOPATHY AND HEEL SPUR. Please see the progress note below for an update on the physical therapy plan of care! Subjective: Patient return to work January 27 but pain became wosre . Seen DR removed from work ,but boot back on week then off . Patient to use boot for next 2weeks and return to PT Objective/Function: POSTURE: WFL fronatla plan mechanics. GAIT: Antalgic gait with CAM boot. PALAPTION: tender deltoid tuberosity instertion of achilles. AROM: dorsiflexion 5 degrees,inversin 40 degrees,eversion 5 degrees,planterflexion 65 degrees. MMT: anterior tibialas 4/5,eversion/inversion 4/5,planterflexion 3+/5. PROPRIOCEPTION: DECREASED. NEURO: intact Plan Plan: 2xs/week for 4 weeks. PT interventions: Focus on modaltioes estim/cp,US,STM. foam rolling calf Goals Goal 1:: Patient will demonstrate improve R ankle DF to improve functional mobility and gait. Goal Time Frame: 2-4 Weeks Goal Progress: Progressing Goal 2:: Patient will demonstrate independence with HEP. Goal Time Frame: 2-4 Weeks Goal Progress: Progressing Goal 3:: Patient will demonstrate improved gait mechanics and decrease R limp for improved WB tolerance and ambulation. Goal Time Frame: 2-4 Weeks Goal Progress: Progressing Goal 4:: Patient will improve LEFS by 5 or > points for improved quality of life. Goal Time Frame: 2-4 Weeks Goal Progress: Progressing Goal 5:: Patient to improve prioception symmtrical right compared to left. Goal Time Frame: 2-4 Weeks Anticipated Interventions Patient/Client Instruction: Educate patient on: Condition, Plan of Care For the Purpose of:: To decrease pain, To increase ROM, To improve muscle performance and motor function, To improve ability to perform ADL's, To increase tolerance to activity/condition/position, To improve performance and independence with ADL's, To improve ability of physical actions for home/community/work/leisure, To improve gait and locomotor functions, To increase flexibility/ROM, To improve balance, To improve safety with gait, To improve health and function, To improve tolerance to ADL's Therapeutic Exercise to Include: Strength training, Balance training, Coordinat ion, Body mechanics, Flexibilty training, Gait and locomotor training, Neuromotor development, Active ROM For the Purpose of:: To decrease pain, To increase ROM, To improve muscle performance and motor function, To improve ability to perform ADL's, To increase tolerance to activity/condition/position, To improve performance and independence with ADL's, To improve ability of physical actions for home/community/work/leisure, To improve gait and locomotor functions, To increase flexibility/ROM, To improve balance, To improve safety with gait, To improve health and function, To improve tolerance to ADL's Manual Therapy Techniques to Include: Mobilization, Soft tissue mobilization Comment: Roller stick to R calf and R ankle talocrual mobilization For the Purpose of:: To decrease pain, To increase ROM, To improve muscle performance and motor function, To improve ability to perform ADL's, To improve ability of physical actions for home/community/work/leisure, To increase flexibility/ROM, To improve tolerance to ADL's Please do not hesitate to contact me at [phone] by phone or Fax: if you have questions or concerns regarding this new plan of care! Sincerely, Enrique Nielson, PT, Cert MDT, OCS
--- NOTE | 2021-05-27 13:26 | HP.PT.NRP ---
ARMOND HERBERT was seen in my office for initial evaluation on 12/16/20. The following Plan of Care was established for this patient: Initial Frequency: 2x /Week Initial Duration: 4 Weeks Patient/Client Instruction: Educate patient on: Condition, Plan of Care For the Purpose of:: To decrease pain, To increase ROM, To improve muscle performance and motor function, To improve ability to perform ADL's, To increase tolerance to activity/condition/position, To improve performance and independence with ADL's, To improve ability of physical actions for home/community/work/leisure, To improve gait and locomotor functions, To increase flexibility/ROM, To improve balance, To improve safety with gait, To improve health and function, To improve tolerance to ADL's Therapeutic Exercise to Include: Strength training, Balance training, Coordination, Body mechanics, Flexibilty training, Gait and locomotor training, Neuromotor development, Active ROM For the Purpose of:: To decrease pain, To increase ROM, To improve muscle performance and motor function, To improve ability to perform ADL's, To increase tolerance to activity/condition/position, To improve performance and independence with ADL's, To improve ability of physical actions for home/community/work/leisure, To improve gait and locomotor functions, To increase flexibility/ROM, To improve balance, To improve safety with gait, To improve health and function, To improve tolerance to ADL's Manual Therapy Techniques to Include: Mobilization, Soft tissue mobilization Comment: Roller stick to R calf and R ankle talocrual mobilization For the Purpose of:: To decrease pain, To increase ROM, To improve muscle performance and motor function, To improve ability to perform ADL's, To improve ability of physical actions for home/community/work/leisure, To increase flexibility/ROM, To improve tolerance to ADL's This patient was last seen in our office . Pertinent comments regarding their Physical therapy will appear below: Patient seen for Achilles tendinopathy Achilles spur s/p resection with initially strengthening ,stretching and p[proprioception RTW symptoms worse placed in boot and only passive modalties At this point I will be discontinuing this patient from physical therapy. I would be happy to see this patient again in the future if found appropriate by the physician. Thank you! Enrique Nielson, PT, Cert MDT, OCS
== END 2021-05-01 19:00 | disposition home or self-care (01) ==
LOC: PT 10:00
PROVIDERS: PCP Internal Medicine; Referring Provider Podiatrist; Visit Provider Podiatrist
DX: M76.60 Achilles tendinitis, unspecified leg (principal); M77.30 Calcaneal spur, unspecified foot
CPT/HCPCS: 97014; 97032; 97035; 97110; 97140; 97161; 97530; G0283

== ENCOUNTER → 2021-05-02 14:43 | Outpatient (CLI) | payer BC, SELFPAY ==
[2021-05-02 11:50] VITALS: BMI 29.5
[2021-05-02 14:49] LABS: Bacteria 0 SEEN /hpf (None Seen); Mucous, Urine 0 SEEN /hpf (<or=2+); Red Blood Cells-Urine 0 SEEN /hpf (0-5); Squamous Epithelial Cells - UA 0 SEEN /hpf (0-5); White Blood Cells 0 SEEN /hpf (0-5)
[2021-05-02 14:57] LABS: Color, Urine Yellow (Yellow); Glucose, Dipstick Normal (Normal); Ketone-Dipstick Negative (Negative); Leukocyte Esterase-Dipstick Negative /ul (Negative); Nitrite-Dipstick Negative (Negative); Occult Blood-Urine 25 /ul (Negative); Protein-Dipstick 15 mg/dl (Negative); Urine Bilirubin Dipstick Negative (Negative); Urine Clarity Clear (Clear); Urine Urobilinogen Normal (Normal)
== END ==
PROVIDERS: PCP Internal Medicine; Referring Provider Physician Assistant Surgical; Visit Provider Physician Assistant Surgical
DX: N39.0 Urinary tract infection, site not specified (principal); R31.9 Hematuria, unspecified
CPT/HCPCS: 81001; 87077; 87086; 87088; 87186

== ENCOUNTER → 2021-05-14 09:16 | Outpatient (CLI) | payer BC, SELFPAY ==
[2021-05-02 11:50] VITALS: BMI 29.5
--- NOTE | 2021-05-14 09:24 | US_ITS ---
STUDY: RENAL ULTRASOUND - COMPLETE REASON FOR EXAM: Male, 60 years old. URINARY FREQUENCY TECHNIQUE: Ultrasound evaluation of the kidneys was performed with real-time and static osorio-scale imaging. COMPARISON: None. FINDINGS: RIGHT KIDNEY: Normal location of the right kidney, which is normal in size. The right kidney measures 10.2 cm x 4.9 cm x 5.1 cm. There is a normal cortex of the right kidney. The renal cortex measures 1 cm. There is no right renal mass or cyst. There are no right renal calculi. There is no right hydronephrosis. DISTAL RIGHT URETER: There is non-visualization of the distal right ureter. There is no demonstrated right ureterovesical junction calculus. There is a visualized right ureteral jet. LEFT KIDNEY: Normal location of the left kidney, which is normal in size. The left kidney measures 10.9 cm x 6.5 cm x 5.4 cm. There is a normal cortex of the left kidney. The renal cortex measures 1.2 cm. There is a 4.3 cm x 4.5 cm cyst. There are no left renal calculi. There is no left hydronephrosis. DISTAL LEFT URETER: There is non-visualization of the distal left ureter. There is no demonstrated left ureterovesical junction calculus. There is a visualized left ureteral jet. BLADDER: The distended urinary bladder has a volume of 56 ml. There is a normal wall thickness of the distended urinary bladder. There is no demonstrated mass within the urinary bladder. There are no demonstrated bladder calculi. US/Kidney and Bladder IMPRESSION: Normal ultrasound of the kidneys and urinary bladder. 4.3 cm x 4 cm x 4.5 cm cyst in the left kidney. Electronically Signed: Arnaldo Phelps MD at 11:10 EDT , Service support ,
== END ==
PROVIDERS: PCP Internal Medicine; Referring Provider Nurse Practitioner; Visit Provider Nurse Practitioner
DX: R35.0 Frequency of micturition (principal)
CPT/HCPCS: 76770